=== PATIENT | male | born 1980 | race Caucasian/White ===

== ENCOUNTER 2019-08-12 08:19 | Outpatient (CLI) | payer BC, SELFPAY ==
[2019-08-12] VITALS (10 sets, daily range): BP systolic 81–133; BP diastolic 51–88; PULSE 55–106; RESP 15–18; TEMP 36.2–37.3; O2SAT 94–133; BMI 29.9
--- NOTE | 2019-08-12 | DI.RAD.S_ITS ---
PROCEDURE: FL GUIDED LUMBAR PUNCTURE LP INDICATIONS: Cranial nerve disorder, unspecified TECHNIQUE: The indications, alternatives, benefits, risks, and complications were explained to the patient. Written informed consent was obtained and placed in the chart. The patient was placed in a prone position on the fluoroscopy table, and a level was chosen for percutaneous access under fluoroscopic guidance. The site was prepped and draped in a sterile fashion. After local anaesthetic, a spinal needle was then used to enter the intrathecal space, with return of cerebrospinal fluid. After obtaining sufficient fluid, the needle was then withdrawn, and a bandage applied to the puncture site. FINDINGS: Puncture level: L3-L4 Needle: Spinal needle. Opening pressure: Not requested. CSF volume and description: 10 cc of clear CSF Medications: 1% lidocaine for anaesthesia. Complications: None Laboratories: As ordered by referring clinician. IMPRESSION: Successful fluoroscopically guided lumbar puncture. Dictated by: Lee Salazar M.D. on 08/12/2019 at 18:09 Approved by: Lee Salazar M.D. on 08/12/2019 at 18:10
[2019-08-12 09:11] LABS: Hematocrit 48.7 % (41-53); Platelet Count 222 X10^3/uL (150-400)
[2019-08-12 09:21] LABS: INR 0.9 (0.9-1.3); Prothrombin Time 10.8 SECONDS (10.1-12.7)
[2019-08-12 12:54] LABS: Appearance CSF Clear (Clear); CSF Tube Number 3; CSF Tube Volume 0.5 mL; Color CSF Colorless (Colorless); Glucose CSF 54 mg/dL (40-70); Red Blood Cell CSF 34 RBC /uL; Total Protein CSF 44 mg/dL (12-60); White Blood Cell CSF 0 MONO/uL (0-5)
== END 2019-08-12 12:56 ==
PROVIDERS: Referring Provider Psychiatry & Neurology Neurology; Visit Provider Psychiatry & Neurology Neurology
PROC: 009U3ZZ Drainage of Spinal Canal, Percutaneous Approach (ICD-10-PCS; principal; 2019-08-12 08:30)
DX: G52.9 Cranial nerve disorder, unspecified (principal); G62.9 Polyneuropathy, unspecified; G51.0 Bell's palsy; R20.1 Hypoesthesia of skin; M21.372 Foot drop, left foot; R51 Headache
CPT/HCPCS: 36415; 62270; 76000; 82164; 82945; 84157; 85014; 85049; 85610; 86335; 87798; 89051